=== PATIENT | female | born 1970 | race Caucasian/White ===

== ENCOUNTER 2017-03-29 08:44 | Outpatient (CLI) | payer BC ==
--- NOTE | 2017-03-29 15:27 | MMO ---
MAMMOGRAM DIGITAL SCREENING BILATERAL: DATE: 03/29/17 HISTORY: 46-year-old female for routine bilateral screening mammogram. COMPARISON: 10/04/12, 10/13/14, and 03/01/16. TECHNIQUE: Digital mammographic views. Computer-aided detection (CAD) utilized. FINDINGS: The breasts are extremely dense, which lowers the sensitivity of mammography. There is no evidence o f suspicious mass, suspicious calcifications, or architectural distortion. There is no significant i nterval change since the prior mammogram. IMPRESSION: 1. BIRADS 1 - Negative. 2. Recommendation: routine bilateral annual screening mammogram (unless the patient develops suspic ious clinical findings that would warrant earlier imaging follow up). robert [] POS: [facility]
== END 2017-03-29 08:45 | disposition home or self-care (01) ==
LOC: MAMMO 08:44
PROVIDERS: ATTEND Obstetrics & Gynecology
DX: Z12.31 Encounter for screening mammogram for malignant neoplasm of breast (principal)
CPT/HCPCS: 77067; G0202

== ENCOUNTER 2018-05-20 11:23 | Outpatient (CLI) | payer BC | END 2018-05-20 11:24 | disposition home or self-care (01) | LOC: BICMAMMO 11:23 | PROVIDERS: ATTEND Family Medicine | DX: Z12.31 Encounter for screening mammogram for malignant neoplasm of breast (principal); R92.1 Mammographic calcification found on diagnostic imaging of breast; Z80.3 Family history of malignant neoplasm of breast | CPT/HCPCS: 77063; 77067 ==

== ENCOUNTER 2019-06-19 12:31 | Outpatient (CLI) | payer BC ==
--- NOTE | 2019-06-19 15:34 | MMO ---
Bilateral MAMMO Bilat Screen [facility]. CLINICAL HISTORY: Patient is 49 years old and is seen for screening. The patient has the following family history of breast cancer: mother, at age 64, malignant (generic). The patient has no personal history of cancer. VIEWS: The views performed were: bilateral craniocaudal with tomosynthesis and bilateral mediolateral oblique with tomosynthesis. FILMS COMPARED: The present examination has been compared to prior imaging studies performed at [facility] on 10/28/2014, 03/01/2016, 03/29/2017 and 05/20/2018. This study has been interpreted with the assistance of computer-aided detection. MAMMOGRAM FINDINGS: The breasts are heterogeneously dense, which could obscure a lesion on mammography. There are no suspicious masses, suspicious calcifications, or new areas of architectural distortion. IMPRESSION: THERE IS NO MAMMOGRAPHIC EVIDENCE OF MALIGNANCY. A ROUTINE FOLLOW-UP MAMMOGRAM IN 1 YEAR IS RECOMMENDED. THE RESULTS OF THIS EXAM WERE SENT TO THE PATIENT. ACR BI-RADS Category 1 - Negative MAMMOGRAPHY NOTE: 1. A negative mammogram report should not delay a biopsy if a dominant of clinically suspicious mass is present. 2. Approximately 10% to 15% of breast cancers are not detected by mammography. 3. Adenosis and dense breasts may obscure an underlying neoplasm. Reported by: NAVNEET PEREYRA MD Electonically Signed: [id number]
== END 2019-06-19 12:32 | disposition home or self-care (01) ==
LOC: BICMAMMO 12:31
PROVIDERS: ATTEND Family Medicine
DX: Z12.31 Encounter for screening mammogram for malignant neoplasm of breast (principal); Z80.3 Family history of malignant neoplasm of breast
CPT/HCPCS: 77063; 77067

== ENCOUNTER 2020-06-20 08:28 | Outpatient (CLI) | payer BC, OTHER ==
--- NOTE | 2020-06-20 08:57 | MMO ---
Bilateral MAMMO Bilat Screen [facility]. CLINICAL HISTORY: Patient is 50 years old and is seen for screening. The patient has the following family history of breast cancer: mother, at age 64, malignant (generic). The patient has no personal history of cancer. VIEWS: The views performed were: bilateral craniocaudal with tomosynthesis and bilateral mediolateral oblique with tomosynthesis. FILMS COMPARED: The present examination has been compared to prior imaging studies performed at [facility] on 03/01/2016, 03/29/2017, 05/20/2018 and 06/19/2019. This study has been interpreted with the assistance of computer-aided detection. MAMMOGRAM FINDINGS: The breasts are heterogeneously dense, which could obscure a lesion on mammography. There are no suspicious masses, suspicious calcifications, or new areas of architectural distortion. IMPRESSION: THERE IS NO MAMMOGRAPHIC EVIDENCE OF MALIGNANCY. A ROUTINE FOLLOW-UP MAMMOGRAM IN 1 YEAR IS RECOMMENDED. THE RESULTS OF THIS EXAM WERE SENT TO THE PATIENT. ACR BI-RADS Category 1 - Negative MAMMOGRAPHY NOTE: 1. A negative mammogram report should not delay a biopsy if a dominant of clinically suspicious mass is present. 2. Approximately 10% to 15% of breast cancers are not detected by mammography. 3. Adenosis and dense breasts may obscure an underlying neoplasm. Reported by: LORA ODOM MD Electonically Signed: [id number]
== END 2020-06-20 08:29 | disposition home or self-care (01) ==
LOC: BICMAMMO 08:28
PROVIDERS: ATTEND Family Medicine
DX: Z12.31 Encounter for screening mammogram for malignant neoplasm of breast (principal); Z80.3 Family history of malignant neoplasm of breast
CPT/HCPCS: 77063; 77067

== ENCOUNTER 2021-08-18 13:48 | Outpatient (CLI) | payer BC | END 2021-08-18 13:49 | disposition home or self-care (01) | LOC: BICMAMMO 13:48 | PROVIDERS: ATTEND Family Medicine | DX: Z12.31 Encounter for screening mammogram for malignant neoplasm of breast (principal); Z80.3 Family history of malignant neoplasm of breast | CPT/HCPCS: 77063; 77067 ==

== ENCOUNTER 2022-09-17 10:46 | Outpatient (CLI) | payer BC | END 2022-09-17 10:47 | disposition home or self-care (01) | LOC: BICMAMMO 10:46 | PROVIDERS: ATTEND Family Medicine | DX: Z12.31 Encounter for screening mammogram for malignant neoplasm of breast (principal) | CPT/HCPCS: 77063; 77067 ==

== ENCOUNTER 2022-12-13 11:38 | Outpatient (CLI) | payer BC | END 2022-12-13 11:39 | disposition home or self-care (01) | LOC: BICRAD 11:38 | PROVIDERS: ATTEND Family Medicine | DX: M25.562 Pain in left knee (principal) ==